=== PATIENT | female | born 1935 | race Asian ===

== ENCOUNTER 2017-03-29 09:31 | Emergency (ER) | payer OTHER ==
[2017-03-29 10:06] VITALS: BP 184/68; PULSE 88; TEMP 98.2; BMI 29.9
--- NOTE | 2017-03-29 10:17 | PDOC ---
History of Present Illness - General Chief Complaint: Nausea/Vomiting Stated Complaint: STOMACH PAIN/HEADACHE/VOMITING Time Seen by Provider: 03/29/17 09:40 - History of Present Illness Initial Comments: 03/29/17 10:11 81 yo Female who presents with nausea. Pt. states that 48 hours ago ( 03/27/17) at 1500 she fell on asphalt and landed on her face. She endorses transient loss of consciousness, and denies ED encounter. Following the fall she has developed worsening diffuse non remitting, headache, of dull character, and nausea with 3 episodes of vomiting, dizziness, decreased appetite, and fatigue. Pt. complains of right shoulder pain and right hand pain/swelling following fall. 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 Denies blood in stool or abdominal pain. Denies back or neck pain/trauma, weakness, numbness/tingling, vision change, or fevers/chills, chest pain, SOB. Has taken over the counter Tylenol. On Xarelto 20 mg PO. Past History - Past Medical History Allergies/Adverse Reactions: Allergies Allergy/AdvReac Type Severity Reaction Status Date / Time No Known Allergies Allergy Verified 03/29/17 09:56 Home Medications: Ambulatory Orders Ascorbic Acid [Vitamin C] 500 mg PO DAILY 03/29/17 Celecoxib 200 mg PO DAILY 03/29/17 Hydralazine HCl 100 mg PO DAILY 03/29/17 Hydrochlorothiazide 25 mg PO DAILY 03/29/17 Losartan Potassium 100 mg PO DAILY 03/29/17 Magnesium Oxide 400 mg PO DAILY 03/29/17 Metformin HCl [Glucophage] 750 mg PO DAILY 03/29/17 Metoprolol Succinate [Toprol Xl -] 25 mg PO DAILY 03/29/17 Olopatadine HCl [Pazeo] 2.5 ml OP DAILY 03/29/17 Oxybutynin Chloride 5 mg PO DAILY 03/29/17 Propylene Glycol/Peg 400/Pf [Systane Ultra 0.4-0.3% Eye Drp] 1 each OP DAILY 03/08 Rivaroxaban [Xarelto -] 20 mg PO DAILY 03/29/17 Rosuvastatin Calcium [Crestor] 5 mg PO DAILY 03/29/17 Vitamin B Complex 1 each PO DAILY 03/29/17 Diabetes: Yes HTN: Yes Hypercholesterolemia: Yes - Surgical History Abdominal Surgery: Yes (?PANCREATIC.) - Psycho/Social/Smoking Cessation Hx Anxiety: No Suicidal Ideation: No Smoking Status: No Smoking History: Never smoked Have you smoked in the past 12 months: No Number of Cigarettes Smoked Daily: 0 Hx Alcohol Use: No Drug/Substance Use Hx: No Substance Use Type: None Hx Substance Use Treatment: No Review of Systems - Review of Systems Comments:: 03/29/17 10:18 GENERAL/CONSTITUTIONAL: No fever or chills. No weakness. HEAD, EYES, EARS, NOSE AND THROAT: No change in vision. No ear pain or discharge. No sore throat. CARDIOVASCULAR: No chest pain or shortness of breath RESPIRATORY: No cough, wheezing, or hemoptysis. GASTROINTESTINAL: + nausea without vomitin. No diarrhea or constipation. GENITOURINARY: No dysuria, frequency, or change in urination. MUSCULOSKELETAL: No joint or muscle swelling or pain. No neck or back pain. SKIN: No rash NEUROLOGIC: +headache, and vertigo. No loss of consciousness, or change in strength/sensation. ENDOCRINE: No increased thirst. No abnormal weight change HEMATOLOGIC/LYMPHATIC: No anemia, easy bleeding, or history of blood clots. ALLERGIC/IMMUNOLOGIC: No hives or skin allergy. *Physical Exam - Vital Signs Last Vital Signs Temp Pulse Resp BP Pulse Ox 98.2 F 88 18 184/68 98 03/29/17 09:56 03/29/17 09:56 03/29/17 09:56 03/29/17 09:56 03/29/17 09:56 - Physical Exam Comments: 03/29/17 10:20 GENERAL: Awake, alert, and fully oriented, in no acute distress HEAD: Diffuse echymosis over right and left side of face. normocephalic. EYES: PERRLA, EOMI, sclera anicteric, conjunctiva clear ENT: Auricles normal inspection, hearing grossly normal, nares patent, oropharynx clear without. Absent posterior midline tenderness. exudates. Moist mucosa NECK: Normal ROM, supple, no lymphadenopathy, JVD, or masses LUNGS: No distress, speaks full sentences, clear to auscultation bilaterally HEART: Regular rate and rhythm, normal S1 and S2, no murmurs, rubs or gallops, peripheral pulses normal and equal bilaterally. ABDOMEN: Soft, nontender, normoactive bowel sounds. No guarding, no rebound. No masses EXTREMITIES:Right shoulder ttp. Normal active and passive range of motion. Right hand palmar/dorsum swelling. Right capitate ttp. Normal inspection, Normal range of motion, no edema. No clubbing or cyanosis. NEUROLOGICAL: Cranial nerves II through XII grossly intact. Normal speech, normal gait, no focal sensorimotor deficits SKIN: Warm, Dry, normal turgor, no rashes or lesions noted. Heart Score/ECG Review - History History: Slightly suspicious - Age Age: >/= 65 - Risk Factors Risk Factors Heart Score: Yes Hx Hypertension - ECG Intrepretation Rhythm: Regular Rhythm - Earlimart Earlimart: Normal - P and CO Delta Wave(s) Present: No WPW: No - QRS Widened: RBBB (III, V3-V4) Q Wave Present: No - ST and T Non Specific ST-T Wave changes: Yes Comment:: 03/29/17 12:18 T wave inversion in lead III, V1-V3 - ECG Impressions Normal ECG: No Torsades franco Pointes: No WPW: No ED Treatment Course - LABORATORY CBC & Chemistry Diagram: 03/29/17 12:30 03/29/17 12:30 - RADIOLOGY Radiology Studies Ordered: Category Date Time Status HEAD CT WITHOUT CONTRAST [CT] Stat CT Scan 03/29/17 10:09 Ordered Radiograph Interpretation: EXAM#: TYPE/EXAM: RESULT: [id number] RAD/CHEST - PA Fall rule out fracture. Single AP view of the chest compared with May 09, 2013. Status post cardiothoracic surgery replacement of cardiac valve. Cardiomegaly. Left lower lung zone obscured by the cardiac silhouette. No airspace opacities are seen in the left upper lung zone , right lung. Normal pulmonary vasculature. No evidence of pneumothorax. Intact visualized osseous structures. Impression. Cardiomegaly. Left lower lung zone obscured by cardiac silhouette. No evidence of pneumothorax. Intact visualized osseous structures. No airspace opacities are seen in the visualized lungs. EXAM#: TYPE/EXAM: RESULT: [id number] CT/FACIAL BONES CT W/O CONTRAST Status post fall evaluate for fracture CT FACIAL BONES. Direct axial images of the facial bones were obtained. The study was supplemented with computer generated, sagittal and coronal reconstruction images. CT FACIAL BONES Findings. No evidence of acute fracture. Intact orbital de la fuente, zygomatic arches , pterygoid plates, orbital roofs, cribriform plate. No evidence of mandible fracture. Normal temporomandibular joints. Mucoperiosteal thickening along the floor of the maxilla sinuses is noted. Aplastic frontal sinuses The temporal bone temporal bones demonstrates normal degree of pneumatization. No evidence of opacification the mastoid air cells, middle ear. Symmetrical ocular globes. Unremarkable retro-orbital soft tissues. Status post left cataract surgery. Straightening of the cervical spine. Normal height of visualized vertebral bodies. Intact odontoid. The predental space is not widened. Symmetrical articulation at the craniocervical junction C3-C4. Moderate left facet joint arthropathy. Osteoarthritis of the left uncovertebral joints. Left neural foramen stenosis C4-C5. Loss of disc space height with degenerative endplate sclerosis. Anterior spondylosis. Posterior disc osteophyte complex. C5-C6. Loss of disc space height. Broad-based posterior annular bulge with peripheral annular calcifications. Impression. Intact facial bones, no fracture is seen. Mucoperiosteal thickening along the floor of the maxillary sinuses. Reported By : Alfonso Thomason MD 03/29/17 1139 EXAM#: TYPE/EXAM: RESULT: [id number] RAD/WRIST- RIGHT Status post fall evaluate for fracture. Right wrist 3 views. Intact visualized osseous structures. No acute fracture seen. Intact distal radius and ulna. Normal styloid process of ulna. Osteoarthritis is observed with loss of joint space between the trapezium and navicular bone. Loss of cartilage observed in metacarpophalangeal joints. Impression. No acute bony abnormalities are seen. Reported By: Alfonso Thomason MD 03/29/17 1317 03/29/17 13:38 EXAM#: TYPE/EXAM: RESULT: [id number] CT/HEAD CT WITHOUT CONTRAST Reason for the study. Status post fall, head trauma CT brain C- . Serial axial images of the brain were obtained from foramen magnum to the cranial vertex without intravenous contrast. No evidence of acute subarachnoid hemorrhage, acute intra-axial or extra-axial fluid collection consistent with subdural or epidural hematoma. No mass effect, midline shift, acute territorial ischemic changes, herniation or edema is present. Normal torres matter white matter differentiation. Loss of volume of the brain parenchyma with involutional changes. Examination of the bone windows show no fracture. Nonspecific mucosal changes are seen in the right matter sinus. No evidence of opacification of the paranasal sinuses, air fluid levels. No evidence of otomastoiditis. Impression. No evidence of acute intracranial hemorrhage, edema , midline shift, mass effect, acute ischemic changes, skull fracture. Medical Decision Making - Medical Decision Making 03/29/17 10:27 81 yo Female who presents with nausea following fall ( 03/27/17) and facial trauma. Asx. symptoms dizziness, vomiting, fatigue. Physical exam with no gross neuro deficits. Face with diffuse BL ecchymosis. DDx: subdural/epidural hematoma, subarachnoid hemorrhage, intracerebral hemorrhage. ED Course: EKG: T wave inversion III, V1-V3 CT FACIAL Intact facial bones, no fracture is seen. Mucoperiosteal thickening along the floor of the maxillary sinuses. Reported By: Alfonso Thomason MD 03/29/[address] HEAD: Impression. No evidence of acute intracranial hemorrhage, edema, midline shift , mass effect, acute ischemic changes, skull fracture. RIGHT WRIST: Impression. No acute bony abnormalities are seen. Reported By: Alfonso Thomason MD 03/29/17 1317 CXR: Unremarkable Zofran 8 mg CBC unremarkable Per Phone conversation with PCP Dr. Whatley [facility] d/c Xarelto for 2 days. F/u with PCP in 2 days outpatient. Pt. is stable, up ambulating, and tolerating PO intake with juice and crackers. Stable Discharge *DC/Admit/Observation/Transfer Diagnosis at time of Disposition: Postconcussion syndrome Headache Qualifiers: Headache type: post-traumatic Headache chronicity pattern: acute headache Intractability: not intractable Qualified Code(s): G44.319 - Acute post- traumatic headache, not intractable - Discharge Dispostion Disposition: HOME Condition at time of disposition: Stable Admit: No - Patient Instructions Additional Instructions: Please return to ED if you experience worsening headache, vision changes, severe dizziness, weakness, or worsening symptoms. Per Dr. Whatley Please withhold ( DO NOT TAKE) YOU XARELTO for 2 days following discharge. Follow up/schedule an appointment with Dr. Whatley in the next 24 hours or at your earliest convenience. Thank you. - Attestations Physician Attestion: 03/29/17 14:52 I, Dr. Harry Guevara, attest that this document has been prepared under my direction and personally reviewed by me in its entirety. I further attest, that it accurately reflects all work, treatment, procedures and medical decision -making performed by me.
[2017-03-29 13:17] LABS: BASOPHIL 0.5 % (0-2.0); EOSINOPHIL 0.2 % (0-4.5); MCH 30.6 pg (25.7-33.7); MCHC 34.1 g/dl (32.0-36.0); MEAN CELL VOLUME 89.8 fl (80-96); MEAN PLT VOLUME 7.9 fl (7.5-11.1); NEUTROPHILS 72.1 % (42.8-82.8); PLATELET COUNT 213 K/MM3 (134-434); RDW 13.9 % (11.6-15.6); WHITE BLOOD COUNT 4.8 K/mm3 (4.0-10.0)
[2017-03-29] MEDS ORDERED: ONDANSETRON *ODT* 4 MG TABLET SL ONE (13:28)
[2017-03-29 13:34] LABS: INR 1.13 (0.82-1.09); PROTHROMBIN TIME (PATIENT) 12.5 SEC (9.98-11.88)
[2017-03-29] MEDS ORDERED: ONDANSETRON 8 MG TABLET (FP) PO ONE (13:34)
[2017-03-29 13:52] LABS: ANION GAP 10 (8-16); CALCIUM 9.4 mg/dL (8.5-10.1); CO2 26 mmol/L (21-32); GLUCOSE,RANDOM 91 mg/dL (74-106)
[2017-03-29 13:55] LABS: ALK PHOS 65 U/L (45-117); BILIRUBIN,TOTAL 0.9 mg/dL (0.2-1.0); CREATININE 0.5 mg/dL (0.55-1.02); SGPT/ALT 32 U/L (12-78); TOT PROT 7.2 g/dl (6.4-8.2)
[2017-03-29 13:56] LABS: SGOT/AST 30 U/L (15-37)
[2017-03-29 13:58] LABS: CPK 118 IU/L (26-192); TROPONIN I < 0.02 ng/ml (0.00-0.05)
--- NOTE | 2017-03-29 14:15 | PDOC ---
Attending Attestation - Resident Resident Name: Harry Guevara - ED Attending Attestation I have performed the following: I have examined & evaluated the patient, The case was reviewed & discussed with the resident, I agree w/resident's findings & plan, Exceptions are as noted - HPI HPI: 03/29/17 14:12 81 yo F h/o HTN DM s/p trip and fall hit head. happened 2 days ago. was walking and tripped. hit head. has facial eccmosis righ face and forehead. no loc no neck or back pain. also c/o right shoulder pain and right hand/ wrist pain s/p fall. today started to have headache, n/v and came for evaluation. has not been able to eat due to nuasea. last emesis this am lives at home with home health aid. 3 days / week. ambulating per aid without diffiuclty last 2 days. - Physicial Exam PE: 03/29/17 14:15 awake alert right forehead, and maxilla with eccymosis, no bony step off. EOMI, no septal hematoma. superficial abrasion to upper lip. no jaw malocclusion. lungs clear bilaterally. heart RRR no mrg. abd soft NT ND. right shoulder FROM mild pain ttp, elbow FROM wrist wtih eccymosis dorsum hand near knuckles. no bony step off. no snuff box tenderness. nuero GCS 15, finger to nose nomral. alt hand movement normal. strenth 5/5. gait normal. negative romberg 03/29/17 14:20 - Medical Decision Making 03/29/17 14:18 81 yo f s/p trip and fall on xarelto with head trauma. plan ct max facial/ head r/o fx or bleed. treat wtih antiemetics. gait tested and stable in ed. trial po. pain control with tylenol. xray righ thand / wrist, and shoulder cxr. reassess. 03/29/17 14:19 xray negative for fx. ct head no acute bleed. no fx. plan dc with home care. 03/29/17 14:52 pt improved. given zofran tylenol d/w pcp will see this week. told to hold xarelto for 2 days. tolerating PO in ed and ambulating without diffiuclty. labs unremarkable.
[2017-03-29] MEDS ORDERED: ACETAMINOPHEN 325 MG TABLET (FP) PO ONE (14:30)
--- NOTE | 2017-03-31 14:48 | EKG ---
Test Reason : Blood Pressure : / mmHG Vent. Rate : 070 BPM Atrial Rate : 070 BPM P-R Int : 164 ms QRS Dur : 122 ms QT Int : 470 ms P-R-T Axes : 065 069 001 degrees QTc Int : 507 ms NORMAL SINUS RHYTHM RIGHT BUNDLE BRANCH BLOCK ABNORMAL ECG WHEN COMPARED WITH ECG OF 09-MAY-2013 13:04, RIGHT BUNDLE BRANCH BLOCK IS NOW PRESENT Confirmed by MIYA HERNANDEZ, BREA ([id number]) on 03/31/2017 2:48:13 PM Referred By: Confirmed By:BREA HOLLIDAY MD
== END 2017-03-29 15:14 | disposition home or self-care (01) ==
LOC: JER 09:31
DX: F07.81 Postconcussional syndrome (principal); G44.319 Acute post-traumatic headache, not intractable; E11.9 Type 2 diabetes mellitus without complications; I10 Essential (primary) hypertension; E78.00 Pure hypercholesterolemia, unspecified; Z79.01 Long term (current) use of anticoagulants; Z79.84 Long term (current) use of oral hypoglycemic drugs
CPT/HCPCS: 36415; 70450-TC; 70486-TC; 71010-TC; 73030-TC-RT; 73110-TC-RT; 80053; 84484; 85025; 85610; 93005; 93010; 99284-25

== ENCOUNTER 2017-05-17 21:19 | Emergency (ER) | payer OTHER ==
[2017-05-17 21:46] VITALS: BMI 29.4
--- NOTE | 2017-05-17 22:15 | PDOC ---
History of Present Illness - General Chief Complaint: Blood Pressure Problem Stated Complaint: HYPERTENSION/FALL Time Seen by Provider: 05/17/17 21:36 - History of Present Illness Initial Comments: 81 year old female with h/o HTN, CAD (s/p stent one year prior, on rivoraxaban) and DM presenting with high blood pressure after an episode of chest pain. She was slightly diaphoretic. The chest pain resolved after 20 minutes, did not radiate, and did not present with SOB. She checked her BP at home and it was elevated to 200s systolic at home. She denies headache, visual changes, chills, fevers, or other sick symptoms. Of note she admitted to some slurred tongue movements earlier in the week but was not seen by a physician. Currently not complaining of any speech deficits or other focal signs. 05/17/17 22:46 Past History - Past Medical History Allergies/Adverse Reactions: Allergies Allergy/AdvReac Type Severity Reaction Status Date / Time No Known Allergies Allergy Verified 05/17/17 21:47 Home Medications: Ambulatory Orders Ascorbic Acid [Vitamin C] 500 mg PO DAILY 03/29/17 Celecoxib 200 mg PO DAILY 03/29/17 Hydralazine HCl 100 mg PO DAILY 03/29/17 Hydrochlorothiazide 25 mg PO DAILY 03/29/17 Losartan Potassium 100 mg PO DAILY 03/29/17 Magnesium Oxide 400 mg PO DAILY 03/29/17 Metformin HCl [Glucophage] 750 mg PO DAILY 03/29/17 Metoprolol Succinate [Toprol Xl -] 25 mg PO DAILY 03/29/17 Olopatadine HCl [Pazeo] 2.5 ml OP DAILY 03/29/17 Oxybutynin Chloride 5 mg PO DAILY 03/29/17 Propylene Glycol/Peg 400/Pf [Systane Ultra 0.4-0.3% Eye Drp] 1 each OP DAILY 03/08 Rivaroxaban [Xarelto -] 20 mg PO DAILY 03/29/17 Rosuvastatin Calcium [Crestor] 5 mg PO DAILY 03/29/17 Vitamin B Complex 1 each PO DAILY 03/29/17 Diabetes: Yes HTN: Yes Hypercholesterolemia: Yes - Surgical History Abdominal Surgery: Yes (?PANCREATIC.) Cardiac Surgery: Yes - Immunization History Immunization Up to Date: No - Suicide/Smoking/Psychosocial Hx Smoking Status: No Smoking History: Never smoked Have you smoked in the past 12 months: No Number of Cigarettes Smoked Daily: 0 Information on smoking cessation initiated: No Hx Alcohol Use: No Drug/Substance Use Hx: No Substance Use Type: None Hx Substance Use Treatment: No Review of Systems - Review of Systems Constitutional: No: Chills, Diaphoresis, Fever HEENTM: No: Blurred Vision Respiratory: No: Cough, Shortness of Breath Cardiac (ROS): No: Chest Pain, Lightheadedness ABD/GI: No: Diarrhea, Nausea, Vomiting : No: Dysuria, Frequency Integumentary: No: Change in Color *Physical Exam - Vital Signs Last Vital Signs Temp Pulse Resp BP Pulse Ox 98.7 F 76 16 202/100 97 05/17/17 21:33 05/17/17 21:33 05/17/17 21:33 05/17/17 21:33 05/17/17 21:33 - Physical Exam General Appearance: Yes: Nourished, Appropriately Dressed. No: Apparent Distress HEENT: positive: EOMI, [place], Normal ENT Inspection, Normal Voice Neck: positive: Trachea midline, Normal Thyroid, Supple. negative: Tender, Rigid Respiratory/Chest: positive: Lungs Clear, Normal Breath Sounds. negative: Chest Tender, Respiratory Distress Cardiovascular: positive: Regular Rhythm, Regular Rate, S1, S2. negative: Edema , Murmur, Gallop/S3 Gastrointestinal/Abdominal: positive: Normal Bowel Sounds, Flat, Soft. negative : Tender Extremity: positive: Normal Capillary Refill, Normal Inspection, Normal Range of Motion Integumentary: positive: Normal Color, Dry, Warm Neurologic: positive: motorcycle technician II-XII NML intact, Fully Oriented, Alert, Normal Mood/ Affect, Normal Response, Motor Strength 5/5 Heart Score/ECG Review - ECG Impressions Comment:: Normal Sinus Rhythm. Old RBBB compared to EKG from one year prior. 05/18/17 00:04 ED Treatment Course - LABORATORY CBC & Chemistry Diagram: 05/17/17 22:00 05/17/17 22:00 Medical Decision Making - Medical Decision Making 81 year old female with CAD and HTN presenting with hypertensive urgency vs. emergency after an episode of chest pain. Patient newberry snot check her pressures at home so we are not sure how long she has been hypertensive to this degree. Her pressures 4 years prior were in the 150s-160s systolic. She does not check her pressures at home. Acute coronary insult should be ruled out and the reason for her Hypertension should be ascertained. Currently has no chest pain so chemical sign of end organ ischemia should also be determined. Will get CBC, CMP , cardiac profile, EKG, and head CT. 05/18/17 00:05 Labs grossly normal and no sign of end organ ischemia. Patient's pressures still in 180s so will give extra dose of HCTZ 25 and [address]easure. Pending head CT. Patient signed out to Dr. Esquivel in stable condition. *DC/Admit/Observation/Transfer Diagnosis at time of Disposition: Hypertensive urgency - Discharge Dispostion Condition at time of disposition: Fair
[2017-05-17 22:33] LABS: BASOPHIL 0.8 % (0-2.0); EOSINOPHIL 1.3 % (0-4.5); MCH 31.2 pg (25.7-33.7); MCHC 34.2 g/dl (32.0-36.0); MEAN CELL VOLUME 91.4 fl (80-96); MEAN PLT VOLUME 8.1 fl (7.5-11.1); NEUTROPHILS 57.2 % (42.8-82.8); PLATELET COUNT 227 K/MM3 (134-434); RDW 13.2 % (11.6-15.6); WHITE BLOOD COUNT 4.3 K/mm3 (4.0-10.0)
[2017-05-17] MEDS ORDERED: HYDROCHLOROTHIAZIDE 25 MG TABLET (FP) PO ONE (22:59)
[2017-05-17] MEDS ORDERED: HYDROCHLOROTHIAZIDE 25 MG TABLET (FP) ONE (23:06)
--- NOTE | 2017-05-17 23:14 | PDOC ---
Attending Attestation - HPI HPI: 05/18/17 00:13 The patient is a 81 year old female with a significant past medical history of HTN, CAD (s/p stent one year prior) and DM, who presents to the emergency department for evaluation of high blood pressure after an episode of chest pain and diaphoresis today. She denies shortness of breath, headache and dizziness. She denies fever, chills , nausea, vomit, diarrhea and constipation. She denies dysuria, frequency, urgency and hematuria. Allergies: NKDA - Physicial Exam PE: 05/18/17 00:13 GENERAL: Well developed, well nourished. Awake and alert. No acute distress. HEENT: Normocephalic, atraumatic. PERRLA, EOMI. No conjunctival pallor. Sclera are non- icteric. Moist mucous membranes. Oropharynx is clear. NECK: Supple. Full ROM. No JVD. Carotid pulses 2+ and symmetric, without bruits. No thyromegaly. No lymphadenopathy. CARDIOVASCULAR: Regular rate and rhythm. No murmurs, rubs, or gallops. Distal pulses are 2+ and symmetric. PULMONARY: No evidence of respiratory distress. Lungs clear to auscultation bilaterally. No wheezing, rales or rhonchi. ABDOMINAL: Soft. Non-tender. Non-distended. No rebound or guarding. No organomegaly. Normoactive bowel sounds. MUSCULOSKELETAL Normal range of motion at all joints. No bony deformities or tenderness. No CVA tenderness. EXTREMITIES: No cyanosis. No clubbing. No edema. No calf tenderness. SKIN: Warm and dry. Normal capillary refill. No rashes. No jaundice. NEUROLOGICAL: Alert, awake, appropriate. Cranial nerves 2-12 intact. Normoreflexic in the upper and lower extremities. Normal speech. Toes are down-going bilaterally. Gait is normal without ataxia. PSYCHIATRIC: Cooperative. Good eye contact. Appropriate mood and affect. - Medical Decision Making 05/18/17 00:14 Documentation prepared by Hali Anguiano, acting as medical physics researcher for Mikayla Esquivel MD EXAM#: TYPE/EXAM: RESULT: [id number] CT/HEAD CT (STROKE) Rule out stroke. CT scan of the brain without intravenous contrast Since 03/29/2017, there remains moderate atrophy and ventricular dilatation. Mild periventricular chronic microvascular ischemic changes are again seen. No mass lesion, gross acute infarct or intracranial hemorrhage are identified. Mild mucosal thickening in the ethmoid air cells. The mastoid air cells are well aerated. Calcification of the cavernous carotid arteries are present. The calvarium is intact Impression: No significant interval change or acute intracranial pathology are identified Reported By: Saulo Marin MD 05/17/17 0278 <Hali Anguiano - Last Filed: 05/18/17 00:53> - Medical Decision Making 05/18/17 03:28 pt 's blood pressure decreased and she was discharged home <Mikayla Esquivel - Last Filed: 05/18/17 03:29>
[2017-05-17 23:16] LABS: ALBUMIN 3.8 g/dl (3.4-5.0); ANION GAP 10 (8-16); BILIRUBIN,TOTAL 0.3 mg/dL (0.2-1.0); CALCIUM 8.9 mg/dL (8.5-10.1); CO2 26 mmol/L (21-32); CREATININE 0.6 mg/dL (0.55-1.02); GLUCOSE,RANDOM 118 mg/dL (74-106); SGOT/AST 14 U/L (15-37); SGPT/ALT 18 U/L (12-78); TOT PROT 6.3 g/dl (6.4-8.2)
[2017-05-17 23:23] LABS: ALK PHOS 52 U/L (45-117); CPK 76 IU/L (26-192); TROPONIN I < 0.02 ng/ml (0.00-0.05)
[2017-05-17 23:42] LABS: INR 1.29 (0.82-1.09); PROTHROMBIN TIME (PATIENT) 14.3 SEC (9.98-11.88)
[2017-05-17 23:44] LABS: ACTIVATED PTT 38.3 SECONDS (26.9-34.4)
--- NOTE | 2017-05-18 00:19 | PDOC ---
*Physical Exam - Vital Signs Last Vital Signs Temp Pulse Resp BP Pulse Ox 98.7 F 65 18 183/72 98 05/17/17 21:33 05/17/17 22:45 05/17/17 22:45 05/17/17 22:45 05/17/17 22:45 - Physical Exam General Appearance: Yes: Nourished, Appropriately Dressed Respiratory/Chest: positive: Lungs Clear, Normal Breath Sounds Cardiovascular: positive: Regular Rhythm, S1, S2 Neurologic: positive: Fully Oriented, Alert ED Treatment Course - LABORATORY CBC & Chemistry Diagram: 05/17/17 22:00 05/17/17 22:00 - ADDITIONAL ORDERS Additional order review: Laboratory Results 05/17/17 05/17/17 22:00 22:00 PT with INR 14.30 H INR 1.29 H PTT (Actin FS) 38.3 H D Sodium 141 Potassium 4.1 Chloride 105 Carbon Dioxide 26 Anion Gap 10 BUN 17 D Creatinine 0.6 Creat Clearance w eGFR > 60 Random Glucose 118 H D Calcium 8.9 Total Bilirubin 0.3 D AST 14 L D ALT 18 D Alkaline Phosphatase 52 Creatine Kinase 76 Troponin I < 0.02 Total Protein 6.3 L Albumin 3.8 05/17/17 22:00 RBC 3.96 MCV 91.4 MCHC 34.2 RDW 13.2 MPV 8.1 Neutrophils % 57.2 D Lymphocytes % 31.6 D Monocytes % 9.1 Eosinophils % 1.3 D Basophils % 0.8 - Medications Given in the ED: ED Medications Discontinued Medications Generic Name Dose Route Start Last Admin Trade Name Freq PRN Reason Stop Dose Admin Hydrochlorothiazide 25 mg 05/17/17 22:59 05/17/17 23:08 Hctz - PO 05/17/17 23:00 25 mg ONCE ONE Administration Medical Decision Making - Medical Decision Making 05/18/17 03:[address] negative for acute intracranial process. Patient's BP 152/80 following Clonidine (0.2 mg). Patient counseled to follow up with PCP in the next 3-5 days. *DC/Admit/Observation/Transfer Diagnosis at time of Disposition: Hypertensive urgency - Discharge Dispostion Condition at time of disposition: Fair - Referrals Referrals: STAFF,NOT ON [Primary Care Provider] - - Patient Instructions Printed Discharge Instructions: DI for High Blood Pressure, How to Monitor Your Blood Pressure at Home Additional Instructions: Please follow up with your Primary Care Doctor in the next 3-5 days for recheck of your blood pressure. Please return to the Emergency Department should you experience a return of elevated blood pressure, headache or blurry vision. - Post Discharge Activity
[2017-05-18] MEDS ORDERED: hydrALAZINE HCL 25 MG TABLET (FP) PO ONE (00:47)
[2017-05-18] MEDS ORDERED: hydrALAZINE HCL 25 MG TABLET (FP) ONE (00:53)
[2017-05-18 01:46] VITALS: PULSE 71; TEMP 98.1
[2017-05-18] MEDS ORDERED: cloNIDine HCL 0.1 MG TABLET ONE (01:49)
[2017-05-18] MEDS ORDERED: cloNIDine HCL 0.1 MG TABLET PO ONE (01:49)
[2017-05-18 03:18] VITALS: BP 152/90
--- NOTE | 2017-05-18 10:25 | EKG ---
Test Reason : Blood Pressure : / mmHG Vent. Rate : 073 BPM Atrial Rate : 073 BPM P-R Int : 170 ms QRS Dur : 130 ms QT Int : 432 ms P-R-T Axes : 066 051 027 degrees QTc Int : 475 ms NORMAL SINUS RHYTHM RIGHT BUNDLE BRANCH BLOCK BASELINE ARTIFACTS ABNORMAL ECG WHEN COMPARED WITH ECG OF 29-MAR-2017 10:13, NONSPECIFIC T WAVE ABNORMALITY HAS REPLACED INVERTED T WAVES IN INFERIOR LEADS REPEAT EKG IF CLINICALLY INDICATED Confirmed by CLAUDE ANDERSON MD ([id number]) on 05/18/2017 10:24:58 AM Referred By: Confirmed By:CLAUDE ANDERSON MD
== END 2017-05-18 08:40 | disposition home or self-care (01) ==
LOC: SUPCPDRO 21:19 → JER 21:19
DX: I16.0 Hypertensive urgency (principal); I25.10 Atherosclerotic heart disease of native coronary artery without angina pectoris; Z95.5 Presence of coronary angioplasty implant and graft; E11.9 Type 2 diabetes mellitus without complications
CPT/HCPCS: 36415; 70450-TC; 71010-TC; 80053; 84484; 85025; 85610; 85730; 93005; 93010; 99282-25

== ENCOUNTER 2018-01-18 06:17 | Inpatient (IN) | payer OTHER ==
[2018-01-12 14:20] VITALS: BMI 29.2
[2018-01-18] MEDS ORDERED: CEFAZOLIN 1 GM/D5W 1 GM/50 ML BAG IVPB ONE (07:39)
[2018-01-18] MEDS ORDERED: TRANEXAMIC ACID 1000 MG/10 ML VIAL IVPUSH ONE (07:39)
[2018-01-18] MEDS ORDERED: CELECOXIB 200 MG CAPSULE PO ONE (07:39)
[2018-01-18] MEDS ORDERED: GABAPENTIN 300 MG CAPSULE (FP) PO ONE (07:39)
--- NOTE | 2018-01-18 07:48 | HP ---
Satellite [facility] - Chief Complaint Chief Complaint: right knee pain - Past Medical History Allergies/Adverse Reactions: Allergies Allergy/AdvReac Type Severity Reaction Status Date / Time No Known Allergies Allergy Verified 05/17/17 21:47 - Current Medications Current Medications: Home Medications Medication Instructions Recorded Ascorbic Acid [Vitamin C] 500 mg PO DAILY 03/29/17 Celecoxib 200 mg PO DAILY 03/29/17 Hydralazine HCl 100 mg PO BID 03/29/17 Hydrochlorothiazide 25 mg PO DAILY 03/29/17 Losartan Potassium 100 mg PO DAILY 03/29/17 Magnesium Oxide 400 mg PO DAILY 03/29/17 Metformin HCl [Glucophage] 750 mg PO DAILY 03/29/17 Propylene Glycol/Peg 400/Pf 1 each OP DAILY 03/29/17 [Systane Ultra 0.4-0.3% Eye Drp] Rivaroxaban [Xarelto -] 20 mg PO DAILY 03/29/17 Rosuvastatin Calcium [Crestor] 10 mg PO DAILY 03/29/17 Vitamin B Complex 1 each PO DAILY 03/29/17 Amlodipine Besylate [Norvasc -] 10 mg PO DAILY 01/12/18 Esomeprazole Magnesium [Nexium 40 mg PO DAILY 01/12/18 24Hr] Furosemide [Lasix -] 20 mg PO Q48H 01/12/18 Metoprolol Succinate [Toprol Xl] 200 mg PO DAILY 01/12/18 Mirabegron [Myrbetriq] 50 mg PO DAILY 01/12/18 Multivitamin [One Daily] 1 each PO DAILY 01/12/18 Satellite Physical Exam - Physical Examination General Appearance: Well Nourished, Well Developed, Alert & Oriented x3 ENT: Clear Lung: Normal air movement Heart: Regular rate & rhythm Extremities: Other (right knee- + swelling, + ttp, decr rom, nvi xrays show grade 4 tricompartmental djd) Neurological: Intact, Alert, Oriented Satellite Impression/Plan - Impression/Plan Impression: right knee djd Operative Procedure: right shanae tkr Date to be Performed: 01/18/18
[2018-01-18] MEDS ORDERED: VANCOMYCIN 1,000 MG VIAL (RESTRICTED TO ID ONLY) ONE (08:46)
[2018-01-18] MEDS ORDERED: ceFAZolin SODIUM 1 GM VIAL ONE ×2 (08:46)
[2018-01-18] MEDS ORDERED: MAGNESIUM HYDROX 2400MG/30ML ORAL SUSPENSION 30 ML CUP PO PRN (11:40)
[2018-01-18] MEDS ORDERED: ONDANSETRON 4 MG/2 ML VIAL IVPUSH PRN (11:40)
[2018-01-18] MEDS ORDERED: MAG HYDROX/AL HYDROX/SIMETH 30 ML UNIT-DOSE CUP PO PRN (11:40)
--- NOTE | 2018-01-18 11:43 | OP ---
Operative Note - Note: Operative Date: 01/18/18 (regan) Pre-Operative Diagnosis: right knee djd Operation: right shanae tkr Post-Operative Diagnosis: Same as Pre-op Surgeon: Andrea Hayes Stock Shipper: Austin Mackay Anesthesiologist/WARPMAN: Nadia Maldonado Anesthesia: Spinal, Local Specimens Removed: bone fragments Estimated Blood Loss (mls): 150 Operative Report Dictated: Yes
[2018-01-18] MEDS ORDERED: LACTATED RINGERS SOLUTION 1,000 ML IV SCH (11:45)
[2018-01-18] MEDS ORDERED: FUROSEMIDE 20 MG TABLET (FP) PO SCH (11:45)
[2018-01-18] MEDS ORDERED: oxyCODONE HCL 5 MG TABLET PO PRN (12:31)
[2018-01-18] MEDS: ACETAMINOPHEN 325 MG TABLET (FP) PO SCH ×2 (16:01→21:32)
[2018-01-18] MEDS: oxyCODONE HCL 5 MG TABLET PO PRN ×2 (16:38→20:41)
[2018-01-18] MEDS: INSULIN SLIDING SCALE (NOVOLOG) 1 VIAL SQ SCH ×2 (16:38→22:33)
[2018-01-18] MEDS: CEFAZOLIN 1 GM/D5W 1 GM/50 ML BAG IVPB SCH (17:29)
--- NOTE | 2018-01-18 20:38 | SPEC ---
DATE OF OPERATION: 01/18/2018 PREOPERATIVE DIAGNOSIS: Degenerative joint disease, right knee. POSTOPERATIVE DIAGNOSIS: Degenerative joint disease, right knee. PROCEDURE: Right total knee replacement with robotic-assisted navigation (Makoplasty). SURGICAL ATTENDING: Andrea Hayes M.D. COMPUTER AIDED DESIGN DESIGNER: Wale Benjamin ANESTHESIA: Regional and spinal. CLOSURE: A Triathlon cemented knee system with a 3 femur, a 3 tibia, a 9 polyethylene, a 29 patella, number 1 Vicryl fascia, 0 and 2-0 for the subcutaneous, 3-0 Monocryl subcuticular, with skin glue for skin, 4-0 undyed Vicryl for pin sites. ESTIMATED BLOOD LOSS: Less than 100 mL. COMPLICATIONS: None. CONDITION: To recovery room in stable condition. DESCRIPTION OF OPERATIVE PROCEDURE: Patient was taken to the operating room on January 18, 2018. Regional and general anesthesia was administered by the anesthesiologist. IV Kefzol and TXA were administered by the anesthesiologist. Well-padded pneumatic tourniquet was placed on the proximal thigh. The right lower extremity was prepped and draped in the usual sterile fashion. The leg was exsanguinated with an Esmarch bandage, and tourniquet was inflated to 275 mmHg. A 12 to 15-cm longitudinal midline incision was incised while centered over the patella. The dissection was carried down to the level of the extensor mechanism with sufficient flaps made to adequately perform the procedure. A medial parapatellar arthrotomy was then performed. We made a cuff of tissue on the patella for later closure. The patella was inverted, the knee was flexed up. The fat pad was excised. The subperiosteal dissection was on the anteromedial proximal tibia around towards the direction of the MCL. The ACL and the PCL were transected and debrided. The meniscal remnants of the medial and lateral meniscus were debrided and removed. This allowed the knee to be able to "be brought forward." The checkpoints were malleted into the tibia and into the femur. Two threaded pins were drilled anteroposteriorly proximal to the knee through the previous incision, through the anterior cortex, then just engaging the posterior cortex. To these pins was assembled the femoral navigation array. One handbreadth below the tibial tubercle, 2 stab incisions were used to drill 2 threaded pins in parallel fashion into the tibia, again through the anterior cortex and just engaging the posterior cortex. To these pins was fastened the tibial arrays. The knee was then registered with the navigation device with center of rotation of the hip, medial and lateral malleoli, both checkpoints, and multiple points on both the femur and the tibia to ensure excellent registration. The navigation device was directed off the "top of the bubbles" on both the femur and the tibia. The navigation passed within less than 0.5 mm to plan. The knee was then thoroughly inspected to remove all osteophytes both medially, laterally, and on the femur and the tibia, and whatever osteophytes were available for dissection. The knee was then taken to extension and to flexion, and stressed in both varus and valgus to assess flexion gaps. The virtual position of the components on the navigation device were then manipulated to optimize the position and to ensure equal gaps in both flexion and extension, and both medially and laterally. The robot was then brought into the field and was registered. The cuts were then made both on the femur and on the tibia as to plan. All osteophytes posteriorly were then removed as well. The gaps were then measured again in flexion and extension to be equal in both flexion and extension and medial and laterally. The femoral notch was then made, as we were doing a posterior stabilizing component, with the appropriate sized box. Trial reduction of the femur achieved excellent [id number] fit. A tibial baseplate of appropriate polyethylene thickness was "floated in the knee." It was ensured to be in the excellent position by navigation devices and was pinned in place. The knee was taken through a range of motion, and found to have excellent stability throughout flexion and extension. The patella was calibrated for thickness and osteotomized down to the appropriate level. The appropriate lollipop was used to drill the lug holes in the patella and the trial button was applied. The knee was taken through a range of motion and found to have excellent tracking of the patella, and patella from full extension to full flexion. Trial components were removed, the keel was punched and drilled, and a sclerotic bone on the tibia was drilled to help with cement interdigitation. The knee was thoroughly irrigated with the pulse antibiotic wellness director. The real components were then cemented in using monitored arrangement cement techniques with antibiotic cement, and pressurization and extension. After the cement was hardened, the knee was thoroughly inspected to remove any extra cement. The real polyethylene component was then clipped into place. Range of motion, stability, and tracking were as described earlier. The checkpoints and the pins were removed. The knee was thoroughly irrigated with antibiotic irrigation. Vancomycin powder was placed into the knee for antibiotic prophylaxis. The medial parapatellar arthrotomy was then closed using number 1 Vicryl interrupted suture. After closure of the deep layer, the knee was taken through a range of motion, and found to have excellent stability of the patella with no dislocation and no undue tension on the repair. The subcutaneous was pulse antibiotic irrigated, and was then closed with 2-0 Vicryl, 3-0 Monocryl subcuticular with the skin glue for the skin. The distal tibial pin site was irrigated thoroughly as well and then closed with 4-0 undyed Vicryl. A sterile Aquacel dressing was applied, followed by a Linn dressing. Tourniquet was deflated. Total tourniquet time was approximately 75 minutes. No complications. Patient was awakened from anesthesia and transferred to recovery room in stable condition. Postoperative x-rays revealed excellent position of the components. Aubree [id number]
[2018-01-18] MEDS: oxyCODONE HCL 10 MG SUSTAINED ACTING TABLET PO SCH (21:33)
[2018-01-18] MEDS: hydrALAZINE HCL 50 MG TABLET (FP) PO SCH (21:33)
[2018-01-18] MEDS: SENNOSIDES/DOCUSATE COMBO (SENNA PLUS) TABLET (UD) PO SCH (21:33)
[2018-01-18] MEDS: ROSUVASTATIN CA 10 MG TABLET (FP) PO SCH (21:34)
[2018-01-19] MEDS: oxyCODONE HCL 5 MG TABLET PO PRN ×2 (00:27→15:49)
[2018-01-19] MEDS: CEFAZOLIN 1 GM/D5W 1 GM/50 ML BAG IVPB SCH (02:11)
[2018-01-19] MEDS: ACETAMINOPHEN 325 MG TABLET (FP) PO SCH ×4 (05:00→21:25)
[2018-01-19] MEDS: INSULIN SLIDING SCALE (NOVOLOG) 1 VIAL SQ SCH ×3 (07:46→16:47)
[2018-01-19 08:00] LABS: HEMATOCRIT 31.8 % (32.4-45.2); HEMOGLOBIN 10.8 GM/dl (10.7-15.3); MCH 30.7 pg (25.7-33.7); MCHC 34.1 g/dl (32.0-36.0); MEAN PLT VOLUME 7.8 fl (7.5-11.1); PLATELET COUNT 240 K/MM3 (134-434); RBC 3.53 M/mm3 (3.60-5.2)
[2018-01-19] MEDS: metFORMIN HCL 500 MG TABLET (FP) PO SCH (08:55)
--- NOTE | 2018-01-19 09:56 | PN ---
Progress Note, Physician Chief Complaint: day #1 s/p right TKR - Current Medication List Current Medications: Active Medications Acetaminophen (Tylenol -) 650 mg PO Q6H [facility] Stop: 01/21/18 15:59 Last Admin: 01/19/18 05:00 Dose: 650 mg Al Hydroxide/Mg Hydroxide (Mylanta Oral Suspension -) 30 ml PO Q4H PRN PRN Reason: DYSPEPSIA Amlodipine Besylate (Norvasc -) 10 mg PO DAILY [facility] Fentanyl (Sublimaze Injection -) 25 mcg IVPUSH [id number] PRN PRN Reason: PAIN-PACU ORDER X 4 DOSES ONLY Furosemide (Lasix -) 20 mg PO Q48H [facility] Last Admin: 01/18/18 16:39 Dose: Not Given Hydralazine HCl (Apresoline -) 100 mg PO BID [facility] Last Admin: 01/18/18 21:33 Dose: 100 mg Hydrochlorothiazide (Hctz -) 25 mg PO DAILY [facility] Insulin Aspart (Novolog Vial Sliding Scale -) [address] [facility]; Protocol Last Admin: 01/19/18 07:46 Dose: Not Given Losartan Potassium (Cozaar -) 100 mg PO DAILY [facility] Magnesium Hydroxide (Milk Of Magnesia -) 30 ml PO PRN PRN PRN Reason: CONSTIPATION Metformin HCl (Glucophage -) 750 mg PO ACBK [facility] Last Admin: 01/19/18 08:55 Dose: 750 mg Metoprolol Succinate (Toprol Xl -) 200 mg PO DAILY [facility] Multivitamins/Minerals/Vitamin C (Tab-A-Vit -) 1 tab PO DAILY [facility] Non-Formulary Medication (Mirabegron [Myrbetriq]) 50 mg PO DAILY [facility] Non-Formulary Medication (Propylene Glycol/Peg 400/Pf [Systane Ultra 0.4-0.3% Eye Drp]) 1 each OP DAILY [facility] Ondansetron HCl (Zofran Injection) 4 mg IVPUSH Q6H PRN PRN Reason: NAUSEA Oxycodone HCl (Roxicodone -) 5 mg PO Q3H PRN PRN Reason: PAIN LEVEL 1-5 Oxycodone HCl (Roxicodone -) 10 mg PO Q3H PRN PRN Reason: PAIN LEVEL 6-10 Last Admin: 01/19/18 00:27 Dose: 10 mg Oxycodone HCl (Oxycontin -) 10 mg PO BID [facility] Stop: 01/21/18 12:32 Last Admin: 01/18/18 21:33 Dose: 10 mg Pantoprazole Sodium (Protonix -) 40 mg PO DAILY [facility] Rivaroxaban (Xarelto -) 20 mg PO DAILY@1800 [facility] Rosuvastatin Calcium (Crestor -) 10 mg PO HS [facility] Last Admin: 01/18/18 21:34 Dose: 10 mg Senna/Docusate Sodium (Pericolace -) 2 tablet PO BID [facility] Last Admin: 01/18/18 21:33 Dose: 2 tablet - Objective Vital Signs: Vital Signs Temperature 99.0 F 01/19/18 06:16 Pulse Rate 75 01/19/18 09:37 Respiratory Rate 20 01/19/18 09:37 Blood Pressure 120/65 01/19/18 09:37 O2 Sat by Pulse Oximetry (%) 96 01/19/18 07:57 Labs: CBC, BMP 01/19/18 07:30 Assessment/Plan doing well, resting comfortably and talking on phone. Pain well tolerated
[2018-01-19] MEDS ORDERED: PEG OP SCH (10:00)
[2018-01-19] MEDS ORDERED: PROPYLENE GLYCOL OP SCH (10:00)
[2018-01-19] MEDS ORDERED: PATIENT'S OWN MEDICATION (NON-FORMULARY) (Mirabegron [Myrbetriq] 50 MG) PO SCH (10:00)
[2018-01-19] MEDS ORDERED: [UNRECOGNIZED DRUG - OTHER] OP SCH (10:00)
[2018-01-19] MEDS: hydrALAZINE HCL 50 MG TABLET (FP) PO SCH ×2 (10:00→21:24)
[2018-01-19] MEDS ORDERED: HYDROCHLOROTHIAZIDE 25 MG TABLET (FP) PO SCH (10:00)
[2018-01-19] MEDS ORDERED: amLODIPine BESYLATE 10 MG TABLET (FP) PO SCH (10:00)
[2018-01-19] MEDS: LOSARTAN POTASSIUM 50 MG TABLET (FP) PO SCH (10:05)
[2018-01-19] MEDS: PANTOPRAZOLE 40 MG TABLET (FP) PO SCH (10:07)
[2018-01-19] MEDS: SENNOSIDES/DOCUSATE COMBO (SENNA PLUS) TABLET (UD) PO SCH ×2 (10:07→21:24)
[2018-01-19] MEDS: MULTIVITAMINS (DAILY MVI) TABLET (FP) PO SCH (10:07)
[2018-01-19] MEDS: oxyCODONE HCL 10 MG SUSTAINED ACTING TABLET PO SCH ×2 (10:07→21:24)
--- NOTE | 2018-01-19 12:20 | PN ---
Progress Note (short form) - Note Progress Note: Ortho Pt seen and examined s/p right shanae tkr pod #1. Pt feels dizzy this am- Has taken 10 mg oxycodone Selected Entries 01/19/18 06:16 Temperature 99.0 F Pulse Rate 86 Respiratory 20 Rate Blood Pressure 112/69 Laboratory Tests 01/19/18 07:30 WBC 7.0 Hgb 10.8 Hct 31.8 L Plt Count 240 dressing c/d/i, calf soft, nt rom 0-50, nvi a/p restart IV fluids decrease pain meds PT dvt ppx pain control d/c planning to rehab
[2018-01-19] MEDS ORDERED: PT OWN MED DRAWER 7, Y5N ONE (18:17)
[2018-01-19] MEDS: RIVAROXABAN 20 MG TABLET PO SCH (18:23)
[2018-01-19] MEDS: ROSUVASTATIN CA 10 MG TABLET (FP) PO SCH (21:24)
[2018-01-20] MEDS: ACETAMINOPHEN 325 MG TABLET (FP) PO SCH ×4 (04:00→21:53)
[2018-01-20] MEDS: metFORMIN HCL 500 MG TABLET (FP) PO SCH (07:13)
[2018-01-20] MEDS: INSULIN SLIDING SCALE (NOVOLOG) 1 VIAL SQ SCH ×4 (07:16→16:30)
[2018-01-20] MEDS ORDERED: traMADol HCL 50 MG TABLET PO PRN (08:14)
--- NOTE | 2018-01-20 08:19 | PN ---
Progress Note (short form) - Note Progress Note: Ortho Pt seen and examined s/p right shanae tkr pod #2. Dizziness has improved Selected Entries 01/20/18 02:00 Temperature 99.4 F Pulse Rate 91 H Respiratory 19 Rate Blood Pressure 140/62 Laboratory Tests 01/20/18 07:30 WBC Pending Hgb Pending Hct Pending Plt Count Pending dressing c/d/i, calf soft, nt rom 0-50, nvi a/p PT dvt ppx pain control d/c planning to rehab for tomorrow if stable
[2018-01-20 08:23] LABS: HEMATOCRIT 31.8 % (32.4-45.2); HEMOGLOBIN 10.7 GM/dl (10.7-15.3); MCH 30.2 pg (25.7-33.7); MCHC 33.8 g/dl (32.0-36.0); MEAN CELL VOLUME 89.5 fl (80-96); PLATELET COUNT 239 K/MM3 (134-434); RBC 3.55 M/mm3 (3.60-5.2); RDW 11.9 % (11.6-15.6); WHITE BLOOD COUNT 9.3 K/mm3 (4.0-10.8)
[2018-01-20] MEDS: LOSARTAN POTASSIUM 50 MG TABLET (FP) PO SCH (10:14)
[2018-01-20] MEDS: amLODIPine BESYLATE 5 MG TABLET (FP) PO SCH (10:14)
[2018-01-20] MEDS: hydrALAZINE HCL 50 MG TABLET (FP) PO SCH ×2 (10:14→21:54)
[2018-01-20] MEDS: oxyCODONE HCL 10 MG SUSTAINED ACTING TABLET PO SCH ×2 (10:15→21:54)
[2018-01-20] MEDS: SENNOSIDES/DOCUSATE COMBO (SENNA PLUS) TABLET (UD) PO SCH ×2 (10:16→21:54)
[2018-01-20] MEDS: PANTOPRAZOLE 40 MG TABLET (FP) PO SCH (10:16)
[2018-01-20] MEDS: MULTIVITAMINS (DAILY MVI) TABLET (FP) PO SCH (10:16)
--- NOTE | 2018-01-20 16:51 | PATH ---
Surgical Pathology Report Patient Name: GIOVANNY LUCAS. Med. Rec. #: [id number] /Age/Gender: 1935 (Age: 82) / F Account: [id number] Location: [facility] MED-SURG Taken: 01/18/2018 Received: 01/18/2018 Reported: 01/20/2018 Physicians: Andrea Hayes M.D. Specimen(s) Received BONE RIGHT KNEE Clinical History Right knee osteoarthritis Final Diagnosis BONE, RIGHT KNEE, RESECTION: DEGENERATIVE JOINT DISEASE, RIGHT KNEE. Electronically Signed Shanice Farr M.D. Gross Description Received in formalin labeled "bone right knee," is 11.0 x 9.5 x 1.2 cm aggregate of multiple portions of bone and soft tissue. The tibial plateau measures 6.6 x 4.5 x 1.7 cm. There are multiple areas of eburnation present, measuring up to 2.0 cm in greatest dimension. The remaining articular surfaces are cage-yellow and diffusely granular. The underlying trabecular bone is yellow and hard. Wood Carver Hand sections are submitted in one cassette, following decalcification. /01/19/2018 [facility]01/19/[facility]
[2018-01-20] MEDS: RIVAROXABAN 20 MG TABLET PO SCH (18:08)
[2018-01-20] MEDS ORDERED: PT OWN MED DRAWER 7, Y5N ONE (18:15)
[2018-01-20] MEDS: ROSUVASTATIN CA 10 MG TABLET (FP) PO SCH (21:54)
[2018-01-21] MEDS: metFORMIN HCL 500 MG TABLET (FP) PO SCH (06:29)
[2018-01-21] MEDS: ACETAMINOPHEN 325 MG TABLET (FP) PO SCH ×2 (06:30→10:29)
[2018-01-21] MEDS: INSULIN SLIDING SCALE (NOVOLOG) 1 VIAL SQ SCH ×2 (06:32→12:02)
--- NOTE | 2018-01-21 10:14 | PN ---
Progress Note (short form) - Note Progress Note: Ortho Pt seen and examined s/p right sahnae tkr pod #3. Selected Entries 01/21/18 06:00 Temperature 99.5 F Pulse Rate 85 Respiratory 18 Rate Blood Pressure 132/70 Laboratory Tests 01/20/18 07:30 WBC 9.3 D Hgb 10.7 Hct 31.8 L Plt Count 239 dressing c/d/i, calf soft, nt rom 0-50, nvi a/p PT dvt ppx pain control d/c planning to rehab today f/u in office in 1 week
--- NOTE | 2018-01-21 10:16 | DS ---
Physical Examination Vital Signs: Vital Signs Temperature 99.5 F 01/21/18 06:00 Pulse Rate 90 01/21/18 08:39 Respiratory Rate 16 01/21/18 08:41 Blood Pressure 131/74 01/21/18 08:39 O2 Sat by Pulse Oximetry (%) 97 01/21/18 08:41 Labs: CBC, BMP 01/20/18 07:30 Discharge Summary Reason For Visit: OSTEOARTHRITIS Procedures: Principal: s/p right tkr Hospital Course: admitted for elective right shanae tkr, unventful post-op, stable for d/c Condition: Good - Instructions Diet, Activity, Other Instructions: Post-op Instructions-Total Knee Replacement Call the office for a follow-up appointment in 1 week - [phone] Aspirin 325mg daily for 6 weeks. Pain medication was sent into your pharmacy. Apply Graduated Compression Stockings (TEDs) to both lower extremities- remove daily for hygiene ONLY Apply Sequential Compression Device (SCDs) to both Lower extremities remove for PT and hygiene ONLY Apply cold packs to affected area for 15 minutes every 2 hours. Physical Therapist will come to your home for the first 5 days. You will be set up with outpatient PT at your first post-operative visit. Patient may ambulate as tolerated-encourage self care (at least every 2-3 hours while awake) with walker or cane Maintain Aquacel (waterproof) dressing to operative wound (will be removed by surgeon at first office visit) Shower with Aquacel dressing in place-if Aquacel integrity compromised, remove and apply dry sterile dressing and notify Orthopedist. DO NOT SHOWER unless Orthopedists approves without Aquacel dressing CONTACT THE OFFICE FOR ANY CHANGE IN YOUR CONDITION (for example-fever greater than 102 degrees, excessive bleeding from operative site, purulent drainage, severe swelling or pain) GO TO THE EMERGENCY ROOM IF THERE IS A MEDICAL EMERGENCY Knee Precautions: * Keep a rolled towel under affected heel while in bed or chair (to keep knee in extension) * Keep affected leg elevated except during mealtimes * DO NOT PLACE PILLOW UNDER AFFECTED KNEE * If you have any questions, please do not hesitate to call the office - . Referrals: Andrea Hayes MD [Staff Physician] - Disposition: [facility] - Home Medications Comprehensive Discharge Medication List: Ambulatory Orders Ascorbic Acid [Vitamin C] 500 mg PO DAILY 03/29/17 Celecoxib 200 mg PO DAILY 03/29/17 Hydralazine HCl 100 mg PO BID 03/29/17 Losartan Potassium 100 mg PO DAILY 03/29/17 Magnesium Oxide 400 mg PO DAILY 03/29/17 Metformin HCl [Glucophage] 750 mg PO DAILY 03/29/17 Propylene Glycol/Peg 400/Pf [Systane Ultra 0.4-0.3% Eye Drp] 1 each OP DAILY 03/08 Rivaroxaban [Xarelto -] 20 mg PO DAILY 03/29/17 Rosuvastatin Calcium [Crestor] 10 mg PO DAILY 03/29/17 Vitamin B Complex 1 each PO DAILY 03/29/17 Amlodipine Besylate [Norvasc -] 5 mg PO DAILY 01/12/18 Esomeprazole Magnesium [Nexium 24Hr] 40 mg PO DAILY 01/12/18 Metoprolol Succinate [Toprol Xl] 200 mg PO DAILY 01/12/18 Mirabegron [Myrbetriq] 50 mg PO DAILY 01/12/18 Multivitamin [One Daily] 1 each PO DAILY 01/12/18
[2018-01-21] MEDS: MULTIVITAMINS (DAILY MVI) TABLET (FP) PO SCH (10:28)
[2018-01-21] MEDS: PANTOPRAZOLE 40 MG TABLET (FP) PO SCH (10:28)
[2018-01-21] MEDS: amLODIPine BESYLATE 5 MG TABLET (FP) PO SCH (10:28)
[2018-01-21] MEDS: LOSARTAN POTASSIUM 50 MG TABLET (FP) PO SCH (10:29)
[2018-01-21] MEDS: hydrALAZINE HCL 50 MG TABLET (FP) PO SCH (10:29)
[2018-01-21] MEDS: SENNOSIDES/DOCUSATE COMBO (SENNA PLUS) TABLET (UD) PO SCH (10:29)
[2018-01-21] MEDS: oxyCODONE HCL 10 MG SUSTAINED ACTING TABLET PO SCH (10:31)
[2018-01-21 12:19] VITALS: BP 103/57; PULSE 86; TEMP 97.9
== END 2018-01-21 13:40 | DRG 470 ==
LOC: FM/S 06:17
PROVIDERS: ADMIT Orthopaedic Surgery; ATTEND Orthopaedic Surgery
PROC: 8E0Y0CZ Robotic Assisted Procedure of Lower Extremity, Open Approach (ICD-10-PCS; 2018-01-18)
PROC: 0SRC0J9 Replacement of Right Knee Joint with Synthetic Substitute, Cemented, Open Approach (ICD-10-PCS; principal; 2018-01-18 10:23)
DX: M17.11 Unilateral primary osteoarthritis, right knee (principal); R42 Dizziness and giddiness
CPT/HCPCS: 36415; 73560-TC-RT-FY; 82962; 85027; 88304-TC; 88311-TC; 94760; 97116-GP; 97162-GP

== ENCOUNTER 2018-10-17 12:44 | Day surgery (SDC) | payer OTHER ==
[2018-10-17 13:33] VITALS: BP 165/101; PULSE 88; TEMP 98.7; BMI 32.0
== END 2018-10-17 13:42 | disposition home or self-care (01) ==
LOC: JASU-ENDO 12:44
PROVIDERS: ATTEND Internal Medicine Cardiovascular Disease
DX: Z53.8 Procedure and treatment not carried out for other reasons (principal)
CPT/HCPCS: 93005; 93010